=== PATIENT | male | born 1945 | race Two or more races ===

== ENCOUNTER 2020-06-23 20:57 | Emergency (ER) | payer MEDICARE, BC ==
[~2020-06-23] VITALS: Ht 175.3 cm; Wt 115.7 kg
--- NOTE | 2020-06-23 21:11 | Emergency Room Report ---
History of Present Illness General Chief Complaint: shoulder pain Source: Patient Present Illness HPI Patient is a 74-year-old male presents for increased right-sided shoulder discomfort. Onset of symptoms 3 days ago reports having worsening pain after watching the [employer] game and had attempted to raise his right shoulder. He subsequent began having increased pain to the area. Has been having increased difficulty with movement. Denies any prior injury. Patient denies any chest pain or shortness of breath. Denies any other complaints. Allergies: Coded Allergies: NO KNOWN ALLERGIES (Verified Allergy, Unknown, 06/23/20) Patient History Past Medical History: see triage record Reviewed Nursing Documentation: PMH: Agreed; PSxH: Agreed Review of Systems All Other Systems: negative except mentioned in HPI Physical Exam Sp02 EP Interpretation: reviewed, normal General Appearance: normal inspection, alert, GCS 15, obese, Chronically Ill Head: atraumatic ENT: normal ENT inspection, hearing grossly normal, normal voice Neck: normal inspection, full range of motion, supple, no bony tend Respiratory: normal inspection, lungs clear, normal breath sounds, no re spiratory distress, no retraction, no wheezing Cardiovascular #1: normal inspection Gastrointestinal: normal inspection Musculoskeletal: normal inspection, back normal, normal range of motion, other - Some swelling to the right subacromial bursa Neurologic: alert, motor strength/tone normal, 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 Differential diagnosis include was not limited to shoulder dislocation, bursitis, rotator cuff injury, tendon avulsion among others. X-ray imaging showed no evidence of acute dislocation, bedside ultrasound showed tenderness to the area of the right-sided subacromial bursa. Patient given lidocaine patch for pain. Does not appear to have any acute evidence of cardiac disease and no evidence of septic joint. Patient said he will follow-up with his orthopedic doctor. He was given a sling and prescription for Voltaren gel as well as lidocaine. He is to return if worse. This medical record is generated with [employer] water reclamation systems operator software. There may be some water reclamation systems operator discrepancies related to use of this software Status: improved Disposition: HOME, SELF-CARE Condition: Stable Scripts Lidocaine Patch* (Lidoderm Patch*) 1 Each Adh..patch 1 PATCH TOPIC DAILY, #30 PATCH Patch(es) may remain in place for up to 12 hours in any 24-hour period. Prov: Raul Sinclair MD 06/23/20 Diclofenac Sodium (VOLTAREN) 100 Gm Gel..gram. 5 GM TP TWICE A DAY, #100 GM Prov: Raul Sinclair MD 06/23/20 Raul Sinclair MD Jun 23, 2020 21:11
--- NOTE | 2020-06-23 21:15 | NUR ---
ED Nurse Note: Recieved pt from home, here with c/o right shoulder pain at 5/10 after elevating arms during celebrating winning of baseball game, denies any other injuries or complaints.
[2020-06-23 21:45] VITALS: BP 147/81
[2020-06-23] MEDS ORDERED: VOLTAREN100 G1 TP (21:45)
[2020-06-23] MEDS ORDERED: LIDODERM700 M1 TOPIC (21:45)
[2020-06-23 21:55] VITALS: BP 154/84
--- NOTE | 2020-06-24 16:36 | Diagnostic Imaging Report ---
Indication: Pain, no trauma Technique: 3 views of the right shoulder Comparison: none Findings: No acute fracture. No dislocation. There is a small inferior acromial spur. The joint space is preserved. Impression: No acute process
== END 2020-06-23 21:55 | disposition home or self-care (01) ==
LOC: EMR 21:15
DX: M71.9 Bursopathy, unspecified (principal); M77.9 Enthesopathy, unspecified; E66.9 Obesity, unspecified; Z68.37 Body mass index [BMI] 37.0-37.9, adult
CPT/HCPCS: 99283